=== PATIENT | female | born 1950 | race Caucasian/White ===

== ENCOUNTER 2017-10-17 23:53 | Inpatient (IN) | payer OTHER ==
[~2017-10-17] VITALS: Ht 160 cm; Wt 67.6 kg
[2017-10-18] MEDS ORDERED: LORAZEPAM 0.5 MG TABLET PO PRN (01:30)
[2017-10-18] MEDS ORDERED: MAG HYDROX/AL HYDROX/SIMETH 30 ML LIQUID UDC PO PRN (01:30)
[2017-10-18] MEDS ORDERED: MAGNESIUM HYDROXIDE 30 ML LIQUID UDC PO PRN (01:30)
[2017-10-18] MEDS ORDERED: ACETAMINOPHEN 325 MG TABLET PO PRN (01:30)
[2017-10-18] MEDS: TEMAZEPAM 7.5 MG CAPSULE PO PRN ×2 (02:31→22:37)
[2017-10-18] MEDS: NICOTINE 14 MG/24HR PATCH TD SCH (08:12)
[2017-10-18 15:00] VITALS: BP 129/76
[2017-10-18 21:45] VITALS: BP 135/69
[2017-10-19 07:30] VITALS: BP 121/71
[2017-10-19] MEDS: NICOTINE 14 MG/24HR PATCH TD SCH (08:19)
[2017-10-19] MEDS: SERTRALINE HCL 50 MG TABLET PO SCH (08:19)
[2017-10-19 17:21] VITALS: BP 153/82
[2017-10-19 20:25] VITALS: BP 148/79
[2017-10-19] MEDS: TEMAZEPAM 7.5 MG CAPSULE PO PRN (22:21)
[2017-10-20 08:00] VITALS: BP 128/64
[2017-10-20] MEDS: NICOTINE 14 MG/24HR PATCH TD SCH (08:52)
[2017-10-20] MEDS: SERTRALINE HCL 50 MG TABLET PO SCH (08:52)
[2017-10-20 16:27] VITALS: BP 153/78
[2017-10-20 20:00] VITALS: BP 164/77
[2017-10-20] MEDS: TEMAZEPAM 7.5 MG CAPSULE PO PRN (22:10)
[2017-10-21 07:30] VITALS: BP 156/56
[2017-10-21] MEDS: SERTRALINE HCL 50 MG TABLET PO SCH (09:18)
[2017-10-21] MEDS: NICOTINE 14 MG/24HR PATCH TD SCH (09:18)
[2017-10-21] MEDS ORDERED: PNEUMOCOCCAL 23-VAL P-SAC VAC 0.5 ML VIAL IM ONE (12:30)
== END 2017-10-21 13:45 | disposition home or self-care (01) | DRG 885 ==
LOC: ER 10-18 00:05 → GPS 10-18 00:40
PROVIDERS: ADMIT Psychiatry & Neurology Psychiatry; ATTEND Internal Medicine
DX: F33.2 Major depressive disorder, recurrent severe without psychotic features (principal); F10.20 Alcohol dependence, uncomplicated; F41.9 Anxiety disorder, unspecified; Y90.9 Presence of alcohol in blood, level not specified; I10 Essential (primary) hypertension
CPT/HCPCS: 36415; 90732; 93005; A4663